=== PATIENT | male | born 1955 | race Caucasian/White ===

== ENCOUNTER 2019-01-23 09:05 | Emergency (ER) | payer MEDICARE ==
[~2019-01-23] VITALS: Ht 180.3 cm; Wt 120.2 kg
[~2019-01-23 09:05] MED LIST: ALLERGY25 MG PO; ASPIRIN325 PO; BACTRIM DS TAB1 EACH PO; CRESTOR10 MG PO; CVS DAILY MULT1 EAC1 PO; ETODOLAC 400 M400 M1 PO; FISH OIL 1,001000 M2 PO; GLUCOPHAGE XR500 MG PO; INVOKANA300 MG PO; JANUVIA100 MG PO; LEVEMIR SUBQ; NEURONTIN 300300 M1 PO; NITROGLYCERIN0.4 MG SUBLING; NORCO 5-325 TA1 EACH PO; OXYCODONE HCL15 MG PO; TOPROL XL25 MG PO; ZETIA10 MG PO
[2019-01-23] MEDS ORDERED: BACTRIM DS TAB1 EACH PO (10:39)
[2019-01-23] MEDS ORDERED: NORCO 5-325 TA1 EACH PO (10:39)
[2019-01-23 10:59] VITALS: BP 105/54
== END 2019-01-23 11:10 | disposition home or self-care (01) ==
LOC: M.ERS 09:05
DX: L02.31 Cutaneous abscess of buttock (principal); G47.30 Sleep apnea, unspecified; I25.10 Atherosclerotic heart disease of native coronary artery without angina pectoris; E78.5 Hyperlipidemia, unspecified; E11.9 Type 2 diabetes mellitus without complications; Z79.4 Long term (current) use of insulin; Z88.1 Allergy status to other antibiotic agents; Z86.718 Personal history of other venous thrombosis and embolism